=== PATIENT | male | born 1975 | race African-American/Black ===

== ENCOUNTER 2023-10-15 20:58 | Emergency (ER) | payer MEDICAID ==
[~2023-10-15] VITALS: Ht 185.4 cm; Wt 126.0 kg
[~2023-10-15 20:58] MED LIST: BO1 TP
[2023-10-15 21:01] VITALS: O2SAT 97
[2023-10-15 22:10] LABS: BASOPHILS % 0.9 % (0.0-2.0); EOSINOPHILS % 1.3 % (0.0-5.0); HEMATOCRIT. 40.1 % (42.0-52.0); HEMOGLOBIN. 13.6 g/dL (14.0-18.0); LYMPHOCYTES % 13.9 % (20.0-50.0); MEAN CORPUSCULAR HEMOGLOBIN 32.5 pg (28.0-32.0); MEAN CORPUSCULAR VOLUME 95.7 fL (80.0-94.0); MEAN PLATELET VOLUME 9.6 fl (7.4-10.4); MONOCYTES % 7.6 % (2.0-8.0); NEUTROPHILS % 76.3 % (40.0-76.0); PLATELET 220 x1000/uL (130-400); RED BLOOD CELL COUNT 4.19 mill/uL (4.7-6.1); RED CELL DISTRIBUTION WIDTH 13.5 % (11.6-14.6); WHITE BLOOD COUNT 8.1 x1000/uL (4.5-11.0)
[2023-10-15 22:17] LABS: CHLORIDE 105 mEq/L (98-107); POTASSIUM 3.7 mEq/L (3.5-5.1); SODIUM 139 mEq/L (136-145)
[2023-10-15 22:18] LABS: CALCIUM 9.7 mg/dL (8.7-10.4); CARBON DIOXIDE 27 mEq/L (21-32)
[2023-10-15 22:23] LABS: CREATININE 1.3 mg/dL (0.6-1.3); GLUCOSE 115 mg/dL (70-105); UREA NITROGEN BLOOD 15 mg/dL (9-23)
[2023-10-16 01:27] LABS: CLARITY URINE CLOUDY (CLEAR); COLOR URINE YELLOW (YELLOW); GLUCOSE URINE NEGATIVE (NEGATIVE); KETONES URINE TRACE (NEGATIVE); LEUKOCYTE ESTERASE URINE 2+ (NEGATIVE); NITRITE URINE NEGATIVE (NEGATIVE); OCCULT BLOOD URINE 3+ (NEGATIVE); PROTEIN URINE 1+ (NEGATIVE); SPECIFIC GRAVITY URINE 1.022 (1.005-1.030); UROBILINOGEN URINE 0.2 E.U./dL (0.2-1.0)
[2023-10-16 01:51] LABS: RBC URINE TNTC /hpf (0-2); WBC URINE TNTC /hpf (0-2)
[2023-10-16 01:52] LABS: BACTERIA URINE 1+; SQUAMOUS EPITHELIAL CELL URINE 1+ /lpf (RARE/1+)
[2023-10-16] MEDS ORDERED: CEPH500C2 MT (03:00)
[2023-10-16 03:48] VITALS: BP 164/100; PULSE 92; RESP 18; TEMP 98.6
[2023-10-16] MEDS: CEFTRIAXONE SODIUM 1G VIAL IM ONE (03:56)
== END 2023-10-16 04:27 | disposition home or self-care (01) ==
LOC: ER 20:58
DX: R31.9 Hematuria, unspecified (principal); N30.80 Other cystitis without hematuria; M54.30 Sciatica, unspecified side
CPT/HCPCS: 99283; 80048; 85025; 36415; 81003; 87086; 96372; J0696